=== PATIENT | male | born 1955 | race American Indian/Alaskan Native ===

== ENCOUNTER 2016-12-08 15:13 | Emergency (ER) | payer OTHER ==
[2016-12-08] MEDS ORDERED: MOTRIN PO ONE (19:28)
[2016-12-08 20:22] VITALS: BP 134/78
== END 2016-12-08 20:23 | disposition home or self-care (01) ==
LOC: ED 15:13
DX: M79.1 Myalgia (principal); M54.5 Low back pain; M54.2 Cervicalgia; M25.552 Pain in left hip; V49.49XA Driver injured in collision with other motor vehicles in traffic accident, initial encounter; X58.XXXA Exposure to other specified factors, initial encounter; Y93.9 Activity, unspecified; Y92.9 Unspecified place or not applicable; Y99.9 Unspecified external cause status
CPT/HCPCS: 99282